=== PATIENT | male | born 1975 | race Caucasian/White ===

== ENCOUNTER 2019-05-14 05:47 | Emergency (ER) | payer OTHER ==
[~2019-05-14] VITALS: Ht 180.3 cm; Wt 99.8 kg
[~2019-05-14 05:47] MED LIST: CYCL10; CYCL10 PO; Cleocin HCl300 MG PO; HYDACE10; HYDACE10B; HYDACE10B PO; HYDACE5 PO; HYDR1TAB94 PO; LORA2; METCAR500; NAPR500 PO; Norco 5-325 Ta1 EACH PO; OXYACE5T; PRED20 PO; Percocet 10-321 EACH PO; [UNRECOGNIZED DRUG - OTHER]
[2019-05-14] MEDS ORDERED: Cyclobenzaprine5 MG PO (07:23)
[2019-05-14] MEDS ORDERED: Neurontin 300300 MG PO (07:23)
[2019-05-14] MEDS ORDERED: Hydrocodone-Ap1 EA23 PO (07:23)
== END 2019-05-14 07:52 | disposition home or self-care (01) ==
LOC: ER 05:47
DX: M54.16 Radiculopathy, lumbar region (principal); F17.210 Nicotine dependence, cigarettes, uncomplicated; Z88.0 Allergy status to penicillin
CPT/HCPCS: 96372; 99283-25; A9270-GY; J1100; J1885

== ENCOUNTER 2019-05-18 10:42 | Emergency (ER) | payer OTHER ==
[~2019-05-18] VITALS: Ht 180.3 cm; Wt 95.2 kg
[~2019-05-18 10:42] MED LIST changes: +Cyclobenzaprine5 MG PO; +Hydrocodone-Ap1 EA23 PO; +Neurontin 300300 MG PO
== END 2019-05-18 12:36 | disposition home or self-care (01) ==
LOC: ER 10:42
DX: M54.5 Low back pain (principal); G89.29 Other chronic pain; Z88.0 Allergy status to penicillin; Z79.899 Other long term (current) drug therapy; F17.210 Nicotine dependence, cigarettes, uncomplicated
CPT/HCPCS: 99283

== ENCOUNTER → 2020-02-16 | Outpatient (CLI) | payer OTHER | END | disposition home or self-care (01) | LOC: LAB EV 15:21 → LAB SHORT 15:21 | DX: L01.00 Impetigo, unspecified (principal) | CPT/HCPCS: 87070; 87077; 87147; 87186; 87205 ==

== ENCOUNTER 2022-02-06 16:51 | Emergency (ER) | payer OTHER ==
[~2022-02-06] VITALS: Ht 180.3 cm; Wt 90.7 kg
[2022-02-06] MEDS ORDERED: CYCLOBENZAPRINE5 MG PO (19:10)
== END 2022-02-06 19:19 | disposition home or self-care (01) ==
LOC: ER 16:51
DX: M51.26 Other intervertebral disc displacement, lumbar region (principal); M48.02 Spinal stenosis, cervical region; F17.210 Nicotine dependence, cigarettes, uncomplicated; Z88.0 Allergy status to penicillin
CPT/HCPCS: 72131; 96374; 99284-25; A9270; J1885

== ENCOUNTER 2022-02-11 14:52 | Emergency (ER) | payer OTHER ==
[~2022-02-11] VITALS: Ht 180.3 cm; Wt 90.7 kg
[~2022-02-11 14:52] MED LIST changes: +CYCLOBENZAPRINE5 MG PO
[2022-02-11] MEDS ORDERED: Norco 5-325 Ta1 EACH PO (18:29)
== END 2022-02-11 19:00 | disposition home or self-care (01) ==
LOC: ER 14:52
DX: M51.26 Other intervertebral disc displacement, lumbar region (principal); F17.210 Nicotine dependence, cigarettes, uncomplicated; Z79.899 Other long term (current) drug therapy
CPT/HCPCS: 72148; 96372; 99284-25; A9270; J1170

== ENCOUNTER → 2024-03-03 | Outpatient (CLI) | payer OTHER ==
[~2024-03-03] MED LIST changes: +Bactrim Ds Tab1 EACH PO; +CLIN300 PO; +Mupirocin22 GM TOP
[2024-03-03 18:09] LABS: BASOPHILS ABSOLUTE AUTO 0.08 K/mm3 (0.00-0.23); BASOPHILS PERCENT AUTO 1 % (0-2); EOSINOPHILS ABSOLUTE AUTO 0.32 K/mm3 (0.00-0.68); EOSINOPHILS PERCENT AUTO 3 % (0-6); Hematocrit 43.8 % (37.0-53.0); Hemoglobin 14.4 g/dL (13.5-17.5); IMMATURE GRAN ABSOLUTE AUTO 0.06 K/mm3 (0.00-0.10); IMMATURE GRAN PERCENT AUTO 1 % (0-1); LYMPHOCYTES ABSOLUTE AUTO 2.67 K/mm3 (0.84-5.20); LYMPHOCYTES PERCENT AUTO 23 % (21-46); MONOCYTES ABSOLUTE AUTO 0.95 K/mm3 (0.16-1.47); MONOCYTES PERCENT AUTO 8 % (4-13); Mean Corpuscular HGB 26.9 pg (26.0-34.0); Mean Corpuscular HGB Conc 32.9 g/dL (31.5-36.5); Mean Corpuscular Volume 82 fL (80-100); Mean Platelet Volume 10.4 fL (9.1-12.4); NEUTROPHILS ABSOLUTE AUTO 7.56 K/mm3 (1.96-9.15); NEUTROPHILS PERCENT AUTO 65 % (41-73); Platelet Count 340 K/mm3 (150-400); RDW Coefficient Variation 14.5 % (11.7-14.2); Red Blood Cell Count 5.35 M/mm3 (4.30-5.90); White Blood Cell Count 11.64 K/mm3 (4.00-11.30)
[2024-03-03 18:31] LABS: Alanine Aminotransfer (ALT/SGP 46 U/L (12-78); Albumin, Blood 3.8 g/dL (3.4-5.0); Alk Phos 62 U/L (50-136); Anion Gap 9 mmol/L (3-11); Aspartate Aminotrans (AST/SGOT 27 U/L (12-37); Bilirubin, Total 0.3 mg/dL (0.1-1.0); Blood Urea Nitrogen 14 mg/dL (8-24); Bun/Creatinine Ratio 16.9 (12.0-20.0); CO2, Blood 26 mmol/L (21-32); Calcium, Blood 8.8 mg/dL (8.5-10.1); Chloride, Blood 107 mmol/L (98-108); Cholesterol 194 mg/dL (50-200); Creatinine, Blood 0.83 mg/dL (0.60-1.20); Globulin, Blood 3.9 g/dL (2.2-4.0); Glomerular Filtration Rate 108 (60-); Glucose, Blood 101 mg/dL (70-99); Potassium, Blood 3.9 mmol/L (3.5-5.5); Sodium, Blood 138 mmol/L (136-145); Total Protein, Blood 7.7 g/dL (6.4-8.2); Triglycerides 71 mg/dL (30-160)
== END ==
LOC: LAB SHORT 15:14 → LAB 15:14
PROVIDERS: Student in an Organized Health Care Education/Training Program
DX: Z00.01 Encounter for general adult medical examination with abnormal findings (principal); H02.60 Xanthelasma of unspecified eye, unspecified eyelid; R60.0 Localized edema
CPT/HCPCS: 80053; 82465; 83880; 84443; 84478; 85025